=== PATIENT | male | born 1990 | race Caucasian/White ===

== ENCOUNTER 2018-05-13 18:05 | Emergency (ER) | payer MEDICAID ==
--- NOTE | 2018-05-13 19:25 | ED Physician Chart ---
ED Chief Complaint/HPI - Patient Information Date Seen:: 05/13/18 Time Seen:: 19:20 Chief Complaint:: Cough History of Present Illness:: 28 yo male had cough, sore throat, headache and fever at night for 5 days. Cough productive of yellow sputum. Pt also had fatigue. Allergies:: Allergies Allergy/AdvReac Type Severity Reaction Status Date / Time MDX No Known Allergies - Nka Allergy Verified 05/13/18 18:34 [No Known Allergies - Nka] Vitals:: Vital Signs - 8 hr 05/13/18 18:37 Temp 97.4 F HR 56 RR 18 BP 126/65 O2 Sat % 97 ED Review of Systems - Review of Systems General/Constitutional: Fever, No chills Skin: No rash Head: Headache Eyes: No pain ENT: No earache, Sore throat Neck: No neck pain Cardio Vascular: No chest pain Pulmonary: SOB GI: No nausea, No vomiting Musculoskeletal: No back pain Neurological: No focal symptoms ED Past Medical History - Past Medical History Past Medical History: No significant medical hx Social History: Non Smoker, No Alcohol, No Drug Use Surgical History: None Family Medical History - Family Member Mother History Unknown: Yes Ethnicity: Living Status: Still Living Hx Family Cancer: No Hx Family Coronary Artery Disease: No Hx Family Congestive Heart Failure: No Hx Family Hypertension: Yes Hx Family Stroke: No Hx Family Diabetes: No Hx Family Seizures: No Hx Family Dementia: No Hx Family AIDS: No Hx Family HIV: No Hx Family COPD: No Hx Family Hepatitis: No Hx Family Psychiatric Problems: No Hx Family Tuberculosis: No ED Physical Exam - Physical Examination General/Constitutional: Awake Head: Atraumatic Eyes: PERRL Skin: No skin lesions ENMT: Nasal exam nl Neck: No nuchal rigidity Respiratory: No Wheeze/Rhonchi/Rales Cardio Vascular: RRR, NL S1 S2 GI: No tenderness/rebounding/guarding Extremities: No tenderness or effusion Neuro/Psych: No focal deficits ED Assessment - Assessment General Assessment: Upper respiratory infection Acute bronchitis Assessment/Comments:: CBC, CMP, Influenza A/B CXR DuoNeb Robitussin DM ED Septic Shock - . Is Septic Shock (SBP<90, OR Lactate>4 mmol\L) present?: No - <6hrs of presentation: Vital Signs: Vital Signs - 8 hr 01/15/19 18:37 Temp 97.4 F HR 56 RR 18 BP 126/65 O2 Sat % 97 ED Reassessment (Disposition) - Reassessment Reassessment:: Pt's cough has improved after treatments D/c home F/u PCP or return to ER if symptoms worsen Reassessment Condition:: Improved - Aftercare/Follow up Instructions Medication Prescribed:: Promethazine DM 5ml q6h prn for cough, 120ml - Patient Disposition Discharge/Transfer:: Home
[2018-05-13] MEDS ORDERED: Guaifenesin DM 10 ML UDC PO ONE (19:27)
[2018-05-13] MEDS ORDERED: Albuterol/Ipratropium Neb 3 ML AERS HHN ONE ×2 (19:27→19:40)
[2018-05-13] MEDS ORDERED: Guaifenesin DM 10 ML UDC ONE (19:36)
[2018-05-13 19:55] LABS: % BASOPHILS 1.2 % (0.0-2.0); % EOSINOPHILS 2.3 % (0.0-5.0); % LYMPHOCYTES 31.2 % (20.0-50.0); % MONOCYTES 8.1 % (2.0-10.0); % NEUTROPHILS 57.2 % (40.0-80.0); BASOPHILE ABSOLUTE 0.1 Th/cumm (0-0.2); EOSINOPHILE ABSOLUTE 0.2 Th/cmm (0.1-0.4); HEMATOCRIT 46.9 % (41.0-60); HEMOGLOBIN 15.3 gm/dL (12-16); LYMPHOCYTE ABSOLUTE 2.1 Th/cmm (1.5-3.0); MEAN CELL VOLUME 87.5 fl (80-99); MEAN CORPUSCULAR HEMOGLOBIN 28.5 pg (26.0-30.0); MEAN CORPUSCULAR HGB CONC 32.6 pg (28.0-36.0); MONOCYTE ABSOLUTE 0.5 Th/cmm (0.3-1.0); NEUTROPHILE ABSOLUTE 3.8 Th/cmm (1.8-8.0); PLATELET COUNT 233 Th/cmm (150-400); RED BLOOD COUNT 5.36 Mil/cmm (4.30-5.70); RED CELL DISTRIBUTION WIDTH 12.5 % (11.5-20.0); WHITE BLOOD COUNT 6.7 Th/cmm (4.8-10.8)
[2018-05-13 20:10] LABS: ALB/GLOB RATIO 1.5 (1.0-1.8); ALBUMIN 4.2 gm/dL (4.2-5.5); ALKALINE PHOSPHATASE 106 U/L (34-104); BILIRUBIN,TOTAL 0.5 mg/dL (0.3-1.0); BUN - UREA NITROGEN 19 mg/dL (7-25); CALCIUM SERUM 9.6 mg/dL (8.6-10.3); CARBON DIOXIDE 25.7 mEq/L (21.0-31.0); CHLORIDE 103 mEq/L (98-107); CREATININE - SERUM 0.8 mg/dL (0.7-1.3); GFR AFRICAN-AMERICAN > 60.0 ml/min (>90); GFR NON AFRICAN-AMERICAN > 60.0 ml/min; GLUCOSE 94 mg/dL (70-105); POTASSIUM SERUM 3.7 mEq/L (3.5-5.1); SGOT 17 U/L (13-39); SGPT/ALT 14 U/L (7-52); SODIUM SERUM 138 mEq/L (136-145)
[2018-05-13 22:14] LABS: INF A SCREEN NEG FOR INF A; INF B SCREEN NEG FOR INF B
--- NOTE | 2018-05-14 08:33 | Diagnostic Imaging Report ---
CHEST X-RAY: AP view INDICATION: Cough COMPARISON: None FINDINGS: There is slight accentuation of the interstitial lung markings. There is no focal consolidation or pleural effusions The heart is normal in size. The osseous structures demonstrate no acute abnormalities. IMPRESSION: Slight accentuation of the interstitial lung markings, nonspecific. No focal consolidation identified.
== END 2018-05-13 21:40 | disposition home or self-care (01) ==
LOC: ER 18:05
DX: J20.9 Acute bronchitis, unspecified (principal); J06.9 Acute upper respiratory infection, unspecified
CPT/HCPCS: 36415-UA; 71045-TC; 80053-TC; 83605; 85025-TC; 87804-TC; 94640; Z7502